=== PATIENT | male | born 1980 | race Two or more races ===

== ENCOUNTER 2024-10-28 22:08 | Emergency (ER) | payer OTHER ==
[~2024-10-28] VITALS: Ht 167.6 cm; Wt 75.0 kg
[2024-10-28 22:46] VITALS: TEMP 98.2
[2024-10-29 00:46] LABS: PLATELET COUNT (AUTO) 365 K/uL (150-450); RED BLOOD CELL COUNT(AUTO) 4.89 MIL/uL (4.50-5.90); RED CELL DISTRIBUTION WIDTH 13.5 % (11.5-14.5); WHITE BLOOD COUNT (AUTO) 10.9 K/uL (4.5-11.0)
[2024-10-29 00:53] LABS: CALCIUM, TOTAL 9.0 mg/dL (8.8-10.5); CREATININE 0.93 mg/dL (0.60-1.30); GLOMERULAR FILTR. RATE CALC > 60 mL/min (>60); GLUCOSE,RANDOM 209 mg/dL (70-110); SODIUM SERUM 137 mmol/L (136-145); UREA NITROGEN, BLOOD 19 mg/dL (7-18)
[2024-10-29 01:01] LABS: LACTIC ACID 1.8 mmol/L (0.4-2.0)
[2024-10-29] MEDS ORDERED: DIPH25CA85 PO (03:08)
[2024-10-29] MEDS ORDERED: SULF-261 PO (03:08)
[2024-10-29 03:53] VITALS: BP 146/89; PULSE 118; RESP 18; O2SAT 98
[2024-10-29] MEDS: LIDOCAINE/PF 1% 2 ML VIAL IM ONE (04:07)
[2024-10-29] MEDS: CefTRIAXone SODIUM 1 GM/VIAL IM ONE (04:07)
== END 2024-10-29 04:24 | disposition home or self-care (01) ==
LOC: EMS 22:08
DX: S50.861A Insect bite (nonvenomous) of right forearm, initial encounter (principal); L03.113 Cellulitis of right upper limb; L29.9 Pruritus, unspecified; Z79.899 Other long term (current) drug therapy; W57.XXXA Bitten or stung by nonvenomous insect and other nonvenomous arthropods, initial encounter; Y93.89 Activity, other specified; Y92.89 Other specified places as the place of occurrence of the external cause; Y99.8 Other external cause status
CPT/HCPCS: 99283; 80048; 83605; 85025; 36415; 96372; J0696; J3490